=== PATIENT | female | born 1985 | race Caucasian/White ===

== ENCOUNTER → 2024-12-03 13:23 | Outpatient (REF) | payer OTHER, SELFPAY | LOC: RAD 13:23 | PROVIDERS: ATTENDING PHYSICIAN Obstetrics & Gynecology; FAMILY PHYSICIAN Internal Medicine | DX: O26.859 Spotting complicating pregnancy, unspecified trimester (principal) | CPT/HCPCS: 76801 ==

== ENCOUNTER → 2025-01-03 08:40 | Outpatient (REF) | payer OTHER, SELFPAY | LOC: PNTC 08:40 | PROVIDERS: ATTENDING PHYSICIAN Obstetrics & Gynecology | DX: Z36.0 Encounter for antenatal screening for chromosomal anomalies (principal); Z36.82 Encounter for antenatal screening for nuchal translucency; O09.521 Supervision of elderly multigravida, first trimester | CPT/HCPCS: 76801; 76813 ==

== ENCOUNTER → 2025-02-28 16:01 | Outpatient (REF) | payer OTHER, SELFPAY | LOC: PNTC 16:01 | PROVIDERS: ATTENDING PHYSICIAN Obstetrics & Gynecology | DX: O09.522 Supervision of elderly multigravida, second trimester (principal) | CPT/HCPCS: 76811; 76817 ==

== ENCOUNTER → 2025-04-09 15:55 | Outpatient (REF) | payer OTHER, SELFPAY | LOC: PNTC 15:55 | PROVIDERS: ATTENDING PHYSICIAN Obstetrics & Gynecology | DX: O09.529 Supervision of elderly multigravida, unspecified trimester (principal) | CPT/HCPCS: 76816 ==

== ENCOUNTER 2025-05-07 18:40 | Observation (INO) | payer OTHER, SELFPAY ==
[2025-05-07 19:03] VITALS: BP 108/87; BMI 32.1
[2025-05-08 12:44] LABS: Hematocrit 36.7 % (37.0-47.0); Hemoglobin 12.7 g/dL (12.0-16.0); Mean Corp Hgb Conc. 34.6 g/dL (33.0-37.0); Mean Corpuscular Volume 92.4 fL (81.0-99.0); Platelet Count 182 10^3/uL (130-400); Red Cell Dist. Width 13.0 % (11.5-14.5)
[2025-05-08 12:54] LABS: INR 0.88; PT 12.4 Sec (11.4-14.6)
[2025-05-08 12:55] LABS: APTT 26.9 Sec (23.4-35.0); Fibrinogen 453 MG/DL (199-459)
--- NOTE | 2025-05-08 15:50 | CM ---
Patient and seen at bedside in [facility]. OBS form reviewed and completed form placed on chart. Patient given copy and patient with no concerns at this time. Patient plan is for discharge home tomorrow after further testing. CM will continue to
follow for discharge planning needs.
Plan;home with no needs anticipated, follow up with clinical genetics laboratory chief.
[2025-05-09 07:38] LABS: Glucose - Point of Care 85 mg/dl (70-99)
[2025-05-09 08:40] LABS: Glucose - Point of Care 156 mg/dl (70-99)
[2025-05-09 09:38] LABS: Glucose - Point of Care 181 mg/dl (70-99)
[2025-05-09 10:41] LABS: Glucose - Point of Care 107 mg/dl (70-99)
[2025-05-09 12:08] LABS: Glucose for Tolerance Test 181 mg/dl
[2025-05-09 12:08] LABS: Glucose for Tolerance Test 156 mg/dl
[2025-05-09 12:08] LABS: Glucose for Tolerance Test 85 mg/dl
[2025-05-09 12:09] LABS: Glucose for Tolerance Test 107 mg/dl
== END 2025-05-09 13:15 | disposition home or self-care (01) ==
LOC: LDRP 18:40
PROVIDERS: Obstetrics & Gynecology; ADMITTING PHYSICIAN Obstetrics & Gynecology; FAMILY PHYSICIAN Internal Medicine
DX: O46.8X3 Other antepartum hemorrhage, third trimester (principal); Z3A.30 30 weeks gestation of pregnancy; Z91.013 Allergy to seafood; Z91.018 Allergy to other foods
CPT/HCPCS: 76815; 76817; 82951; 82962; 85027; 85384; 85610; 85730; 86850; 86900; 86901; G0378

== ENCOUNTER → 2025-05-14 11:39 | Outpatient (REF) | payer OTHER, SELFPAY | LOC: PNTC 11:39 | PROVIDERS: ATTENDING PHYSICIAN Obstetrics & Gynecology | DX: O09.529 Supervision of elderly multigravida, unspecified trimester (principal); O26.853 Spotting complicating pregnancy, third trimester | CPT/HCPCS: 76815 ==

== ENCOUNTER → 2025-05-20 15:28 | Outpatient (REF) | payer OTHER, SELFPAY | LOC: PNTC 15:28 | PROVIDERS: ATTENDING PHYSICIAN Obstetrics & Gynecology | DX: O09.529 Supervision of elderly multigravida, unspecified trimester (principal) | CPT/HCPCS: 59025; 76816 ==

== ENCOUNTER → 2025-05-27 16:06 | Outpatient (REF) | payer OTHER, SELFPAY | LOC: PNTC 16:06 | PROVIDERS: ATTENDING PHYSICIAN Obstetrics & Gynecology | DX: O46.93 Antepartum hemorrhage, unspecified, third trimester (principal); O09.529 Supervision of elderly multigravida, unspecified trimester | CPT/HCPCS: 59025; 76815 ==

== ENCOUNTER → 2025-06-04 07:05 | Outpatient (REF) | payer OTHER, SELFPAY | LOC: PNTC 07:05 | PROVIDERS: ATTENDING PHYSICIAN Obstetrics & Gynecology | DX: O46.8X3 Other antepartum hemorrhage, third trimester (principal) | CPT/HCPCS: 59025; 76815 ==

== ENCOUNTER → 2025-06-10 16:14 | Outpatient (REF) | payer OTHER, SELFPAY | LOC: PNTC 16:14 | PROVIDERS: ATTENDING PHYSICIAN Obstetrics & Gynecology | DX: O46.93 Antepartum hemorrhage, unspecified, third trimester (principal); O09.523 Supervision of elderly multigravida, third trimester | CPT/HCPCS: 59025; 76815 ==

== ENCOUNTER → 2025-06-17 15:55 | Outpatient (REF) | payer OTHER, SELFPAY | LOC: PNTC 15:55 | PROVIDERS: ATTENDING PHYSICIAN Obstetrics & Gynecology | DX: O09.523 Supervision of elderly multigravida, third trimester (principal); O46.93 Antepartum hemorrhage, unspecified, third trimester | CPT/HCPCS: 59025; 76816; 76818 ==

== ENCOUNTER → 2025-06-24 15:57 | Outpatient (REF) | payer OTHER, SELFPAY | LOC: PNTC 15:57 | PROVIDERS: ATTENDING PHYSICIAN Obstetrics & Gynecology | DX: O09.529 Supervision of elderly multigravida, unspecified trimester (principal); O26.853 Spotting complicating pregnancy, third trimester | CPT/HCPCS: 59025; 76815 ==

== ENCOUNTER → 2025-07-01 15:59 | Outpatient (REF) | payer OTHER, SELFPAY | LOC: PNTC 15:59 | PROVIDERS: ATTENDING PHYSICIAN Obstetrics & Gynecology | DX: O09.529 Supervision of elderly multigravida, unspecified trimester (principal); O00-O9A Pregnancy, childbirth and the puerperium | CPT/HCPCS: 59025; 76815 ==

== ENCOUNTER → 2025-07-02 16:52 | Outpatient (REF) | payer OTHER, SELFPAY | LOC: PNTC 16:52 | PROVIDERS: ATTENDING PHYSICIAN Obstetrics & Gynecology | DX: O42.92 Full-term premature rupture of membranes, unspecified as to length of time between rupture and onset of labor (principal) | CPT/HCPCS: 76815 ==

== ENCOUNTER 2025-07-03 04:00 | Inpatient (IN) | payer OTHER, SELFPAY ==
[2025-07-03 04:07] VITALS: BP 134/56; BMI 35.8
[2025-07-03 04:24] LABS: Hematocrit 39.1 % (37.0-47.0); Hemoglobin 13.4 g/dL (12.0-16.0); Mean Corp Hgb Conc. 34.3 g/dL (33.0-37.0); Mean Corpuscular Volume 90.9 fL (81.0-99.0); Nucleated Red Blood Cells % 0 %; Platelet Count 169 10^3/uL (130-400); Red Cell Dist. Width 12.7 % (11.5-14.5)
[2025-07-03] MEDS: MOTRIN 600 MG PO ×3 (05:49→20:55)
[2025-07-03] MEDS: TYLENOL 650 MG PO (07:19)
[2025-07-03] MEDS: PRENATAL PLUS 1 TABLET PO (07:19)
[2025-07-04 05:55] LABS: Hematocrit 37.0 % (37.0-47.0); Hemoglobin 12.6 g/dL (12.0-16.0)
[2025-07-04] MEDS: PRENATAL PLUS 1 TABLET PO (08:35)
[2025-07-05] MEDS: PRENATAL PLUS 1 TABLET PO (08:09)
[2025-07-05] MEDS: FLUZONE (6 mos+) 2025-2026 FORMULA 0.5 ML IM (11:01)
[2025-07-05 14:49] LABS: Syphilis/T. pallidum Ab Reflex Negative (Negative)
== END 2025-07-05 12:35 | disposition home or self-care (01) | DRG 807 ==
LOC: LDRP 04:00
PROVIDERS: Student in an Organized Health Care Education/Training Program; ADMITTING PHYSICIAN Obstetrics & Gynecology
PROC: 10E0XZZ Delivery of Products of Conception, External Approach (ICD-10-PCS; 2025-07-03)
PROC: 0HQ9XZZ Repair Perineum Skin, External Approach (ICD-10-PCS; 2025-07-03)
PROC: 3E02340 Introduction of Influenza Vaccine into Muscle, Percutaneous Approach (ICD-10-PCS; 2025-07-05)
DX: O70.0 First degree perineal laceration during delivery (principal); Z37.0 Single live birth; Z3A.38 38 weeks gestation of pregnancy; Z91.013 Allergy to seafood; Z91.018 Allergy to other foods; Z23 Encounter for immunization
CPT/HCPCS: 85014; 85018; 85025; 86780; 86850; 86900; 86901; 90656; G0008

== ENCOUNTER → 2025-09-04 11:01 | Outpatient (REF) | payer OTHER, SELFPAY | LOC: RAD 11:01 | PROVIDERS: ATTENDING PHYSICIAN Internal Medicine | DX: E07.9 Disorder of thyroid, unspecified (principal) | CPT/HCPCS: 76536 ==